=== PATIENT | male | born 1970 | race Caucasian/White ===

== ENCOUNTER → 2019-05-01 06:08 | Outpatient (CLI) | payer MEDICAID, SELFPAY ==
--- NOTE | 2019-05-01 10:48 | NEURO ---
NCS and/or EMG Patient Report Ordering Doctor: Inocencio Wade DATE OF SERVICE: 05/01/19 This is a nerve conduction study performed on this 48-year-old male with a history of sharp pain and tingling in both hands and forearms as well as right elbow pain since 2013. He is left-handed however the right side is worse. No history of neck pain or diabetes. Bilateral upper extremity sensory and motor nerve conduction studies performed. The median motor and sensory distal latencies are severely prolonged more so on the right side with preservation of amplitude and conduction velocities. The ulnar motor and sensory and radial sensory responses are normal. The median F wave latencies are bilaterally prolonged more so on the right side. Impression: Abnormal nerve conduction study of the bilateral upper extremities consistent with moderate to severe carpal tunnel syndrome bilaterally worse on the right side. Dictated using [employer] software, not proofread
== END ==
PROVIDERS: Referring Provider Physician Assistant; Visit Provider Physician Assistant
DX: R20.2 Paresthesia of skin (principal)
CPT/HCPCS: 95911

== ENCOUNTER 2019-05-21 07:50 | Day surgery (SDC) | payer MEDICAID, SELFPAY ==
--- NOTE | 2019-05-15 19:50 | PCM.HP.BLA ---
History and Physical Patient Name: Matias Tong : 1970 From: PHANI SKINNER PA-C DATE OF SURGERY: 05/21/2019 SCHEDULED PROCEDURE: right carpal tunnel release HISTORY OF PRESENT ILLNESS: Preoperative history and physical examination was performed on May 14, 2019. This is a 48-year-old male who has been having ongoing pain in bilateral wrists/hands for several years. He states his symptoms have progressively become worse. He has numbness and tingling of the bilateral hands. Patient is left-hand dominant. However his right hand is worse than his left hand with regards to his symptoms. He has numbness and tingling which is increased at nighttime, driving and after work. Patient has tried copper gloves in the past. Had EMG nerve conduction study exam which did reveal moderate to severe carpal tunnel syndrome. Patient has medical history pertinent for hypertension. He denies any chest pain, shortness of breath, fevers chills, recent infections. After discussion with Dr. Isaac Hernandez, the patient does wish to proceed with a staged carpal tunnel release. He will undergo an upcoming right carpal tunnel release on May 21, 2018. REVIEW OF SYSTEMS: ROS: Const: Denies change in appetite, fever and weight change. CV: Denies chest pain, heart murmur and irregular heartbeat. Resp: Reports cough, but denies pneumonia, shortness of breath, tuberculosis and wheezing. GI: Reports heartburn, but denies constipation, diarrhea, nausea, rectal itching, bloody stools and vomiting. : Denies incontinence. Musculo: Denies leg swelling, pain, trouble walking and weakness. Skin: Denies Raynaud's, history of shingles and tattoo. Neuro: Reports numbness/tingling but denies ambulatory dysfunction, dizziness and tremor. Psych: Denies anxiety, insomnia and stress. Daniel/Lymph: Denies anemia, bleeding/bruising tendency and past transfusion. Reviewed, no changes. PAST MEDICAL HISTORY: Advance Care Plan: No Advance Directives Effective Date: 01/18/2019 PMH: Medical Problems: Hard of Hearing, High Blood Pressure Accidents: None Surgical Hx: None Anesthesia Complications: None Assistive Devices: None Reviewed, no changes. SOCIAL HISTORY: SH: Marital: Single.Occupation: Self Employed - [employer].Work Status: Currently Working.Hand Dominance: Left-handed. Personal Habits: Cigarette Use: Former.Smokeless Tobacco: Never Used Smokeless Tobacco.E-Cigarette Use: Never used.Alcohol: Denies use.Drug Use: Denies Use.Enjoy Exercising: Never Exercises. Reviewed, no changes. VITALS: Ht: 66 Wt: 221lb Wt k.246 BMI: 35.7 BP: 118/84 Pulse: 70 Resp: 22 T: 97.8 T: 36.6C ALLERGIES: No Known Drug Allergy MEDICATIONS: Tramadol HCL 50 mg 1-2 by mouth every 6 hours as needed pain PRE-OP EXAM: General appearance:NORMAL Other: Eyes: Conjunctivae and lids: NORMAL Pupils: ERR Ears, Nose, Mouth, and Throat: NORMAL Other: Inspection of lips, teeth and gums: NORMAL Other: Neck: Examination of neck: no masses noted. Respiratory: Assessment of respiratory effort: NORMAL Other: Auscultation of lungs: clear to auscultation no wheezes, rhonchi or rales. Cardiovascular: Auscultation of heart: regular rate and rhythm, no murmurs, gallops or rubs. Gastrointestinal: Exam of abdomen: soft, nontender, nondistended bowel sounds present. PHYSICAL EXAMINATION: On exam of bilateral hands there is no signs of infection. There is no significant atrophy. Patient has full composite fist and full extension of fingers. Patient does have positive Tinel's, positive Phalen's, positive carpal compression exam bilaterally. Patient has good range of motion of bilateral wrists. Patient does have decreased 2 point discrimination bilaterally. IMAGING STUDIES: Radius EMG nerve conduction study exam does reveal bilateral moderate to severe carpal tunnel syndrome with the right being worse than the left. EMG nerve conduction study exam was performed at [facility] on May 01, 2019. IMPRESSION: 1. Moderate to severe right carpal tunnel syndrome 2. Moderate severe left carpal tunnel syndrome 3. Hypertension PLAN: Dr. Isaac Hernandez did discuss and review with the patient all treatment options including surgical versus nonsurgical options. Patient does wish to proceed with the above-stated procedure. Potential risks, benefits, and complications of the procedure were discussed in detail including but not limited to , infection, nerve and blood vessel damage, persistent pain, numbness, tingling, paresthesias, blood clot, pulmonary embolism, and requirement for possible further surgery. The patient expressed full understanding and has no further questions for the doctor. Patient does agree to proceed with the above-stated procedure and has signed the surgery consent form. Patient was given tramadol for postoperative pain control and was also instructed to take extra strength Tylenol 5 mg 2 tablets 3 times daily for pain control. This dictation was created using voice recognition software. Phonetic and/or grammatical errors may exist.. ___ I have re-examined the patient. There are no clinical changes since date of exam. ___ See progress notes for changes. ___ Dictated on admission Date: Time: Signature:
[2019-05-21 08:23] VITALS: BP 154/100; PULSE 64; RESP 18; TEMP 36.9; O2SAT 99; BMI 34.4
[2019-05-21] MEDS: Lactated Ringers 1,000 ML 100 ML IV (08:39)
[2019-05-21] MEDS: Cefazolin 2 GM in 0.9% Normal Saline 100 ML IV (09:14)
--- NOTE | 2019-05-21 09:51 | PCM.OPRPT ---
Report of Operation Date of Procedure: 05/21/19 Pre-Operative Diagnosis: right CTS Post-Operative Diagnosis: same Surgery/Procedure Performed:: RDTCL right Type of Anesthesia:: Nathalie Herrera Anesthesiologist: Harshil Kelley - Admkeyla VTE Documentation VTE Present on Admission: No VTE Mechan Device Prophylaxis: SCD's VTE Pharm Prophylaxis ordered?: No Reason prophylaxis not ordered:: Treatment Not Indicated
[2019-05-21 09:59] VITALS: BP 132/98; BP 154/99; PULSE 99; RESP 16; TEMP 36.3; O2SAT 100
[2019-05-21 10:05] VITALS: BP 132/98; BP 154/99; PULSE 81; RESP 16; O2SAT 96
[2019-05-21 10:09] VITALS: BP 128/91; BP 154/99; PULSE 84; RESP 16; O2SAT 99
[2019-05-21 10:14] VITALS: BP 130/94; BP 154/99; PULSE 82; RESP 16; TEMP 36.5; O2SAT 98
[2019-05-21 10:54] VITALS: BP 154/99
== END 2019-05-21 11:09 | disposition home or self-care (01) ==
LOC: SDC 07:51 → AC 07:52
PROVIDERS: Referring Provider Orthopaedic Surgery; Visit Provider Orthopaedic Surgery
PROC: (CPT 64721; principal; 2019-05-21 09:00)
DX: G56.03 Carpal tunnel syndrome, bilateral upper limbs (principal); I10 Essential (primary) hypertension; J45.909 Unspecified asthma, uncomplicated; H91.90 Unspecified hearing loss, unspecified ear; Z87.891 Personal history of nicotine dependence
CPT/HCPCS: 64721; J7120

== ENCOUNTER 2019-06-21 12:28 | Day surgery (SDC) | payer MEDICAID, SELFPAY ==
[2019-06-21] VITALS (7 sets, daily range): BP systolic 130–152; BP diastolic 84–97; PULSE 76–85; RESP 16; TEMP 36.1–36.7; O2SAT 95–98; BMI 34.0
[2019-06-21] MEDS: Lactated Ringers 1,000 ML 100 ML IV (13:50)
[2019-06-21] MEDS: Cefazolin 2 GM in 0.9% Normal Saline 100 ML IV (14:05)
--- NOTE | 2019-06-21 14:53 | PCM.OPRPT ---
Report of Operation Date of Procedure: 06/21/19 Pre-Operative Diagnosis: left carpal tunnel syndrome Post-Operative Diagnosis: same Surgery/Procedure Performed:: RDTCL left Type of Anesthesia:: Block,Nathalie Anesthesiologist: Ty Appiah - Admit VTE Documentation VTE Present on Admission: No VTE Mechan Device Prophylaxis: SCD's VTE Pharm Prophylaxis ordered?: No Reason prophylaxis not ordered:: Treatment Not Indicated
== END 2019-06-21 15:48 | disposition home or self-care (01) ==
LOC: SDC 12:28 → AC 12:31
PROVIDERS: Referring Provider Orthopaedic Surgery; Visit Provider Orthopaedic Surgery
PROC: (CPT 64721; principal; 2019-06-21 13:45)
DX: G56.03 Carpal tunnel syndrome, bilateral upper limbs (principal); I10 Essential (primary) hypertension; J45.909 Unspecified asthma, uncomplicated; H91.90 Unspecified hearing loss, unspecified ear; E66.9 Obesity, unspecified; Z68.35 Body mass index [BMI] 35.0-35.9, adult; Z87.891 Personal history of nicotine dependence
CPT/HCPCS: 01810; 64721; J7120